=== PATIENT | female | born 1955 | race Caucasian/White ===

== ENCOUNTER 2019-05-30 22:32 | Emergency (ER) | payer OTHER ==
[~2019-05-30] VITALS: Ht 172.7 cm; Wt 54.4 kg
[~2019-05-30 22:32] MED LIST: DEXT5TAB PO
[2019-05-30 23:00] VITALS: BP_SYST 151
[2019-05-31 01:10] VITALS: BP_SYST 145
== END 2019-05-31 01:10 | disposition home or self-care (01) ==
LOC: SED 22:32
DX: S01.21XA Laceration without foreign body of nose, initial encounter (principal); R04.0 Epistaxis; I10 Essential (primary) hypertension; G35 Multiple sclerosis; W18.39XA Other fall on same level, initial encounter; Y93.89 Activity, other specified; Y92.89 Other specified places as the place of occurrence of the external cause; Y99.8 Other external cause status
CPT/HCPCS: 70160-TC; 70450-TC; 99284

== ENCOUNTER 2022-02-06 19:21 | Emergency (ER) | payer OTHER ==
[2022-02-06 19:38] VITALS: BP_SYST 146
--- NOTE | 2022-02-06 19:41 | NUR ---
PATIENT BACK IN AMBULANCE AWAITING ROOM. FAMILY WANTED PATIENT BROUGHT IN AFTER MECHANICAL TRIP/FALL LAST NIGHT. UNABLE TO GET UP FROM GROUND AFTER FALL, NO LOC, NO HEAD INJURY OR BLOOD THINNERS. STATES ONLY COMPLAINT IS SORE THROAT. (+) COVID TEST THREE DAYS AGO. NO SOB, NOT AMBULATORY, USES WHEELCHAIR AT BASELINE.
[2022-02-06] MEDS ORDERED: NIRM1TAB PO (21:05)
[2022-02-06] MEDS ORDERED: IBUP-1969 PO (21:05)
[2022-02-06 22:27] VITALS: BP_SYST 159
--- NOTE | 2022-02-06 22:27 | NUR ---
Patient given written and verbal discharge instructions and verbalizes understanding. ER Dr. Mendoza discussed with patient the results and treatment provided. Patient in stable condition. ID arm band removed. Rx of ibuprofen and paxloid given. Patient educated on pain management and to follow up with PMD. Pain Scale 0. Opportunity for questions provided and answered. Medication side effect fact sheet provided. Daughter signed discharge papers due to pt being unable to write.
[2022-02-09] MEDS ORDERED: SIMV20TA2 PO (14:53)
[2022-02-09] MEDS ORDERED: COPAXI20 SQ (14:53)
[2022-02-09] MEDS ORDERED: MODA200T48 PO (14:53)
[2022-02-09] MEDS ORDERED: OSCD500 PO (14:53)
[2022-02-09] MEDS ORDERED: BACL20TA PO (14:53)
[2022-02-09] MEDS ORDERED: FAMO40TA71 PO (14:53)
[2022-02-09] MEDS ORDERED: AMAN100C19 PO (14:53)
== END 2022-02-06 22:27 | disposition home or self-care (01) ==
LOC: SED 19:21
DX: U07.1 COVID-19 (principal); J40 Bronchitis, not specified as acute or chronic; R05.9 Cough, unspecified; Z79.899 Other long term (current) drug therapy
CPT/HCPCS: 71045; 99283